=== PATIENT | female | born 1985 | race Caucasian/White ===

== ENCOUNTER 2018-10-08 10:18 | Emergency (ER) | payer OTHER ==
[~2018-10-08] VITALS: Ht 160 cm; Wt 71.2 kg
[~2018-10-08 10:18] MED LIST: ACET-8386 PO; BACL10TA4 PO; CEPH250C16 PO; DULO30EC PO; NAPR-54 PO; ORE25 PO
--- NOTE | 2018-10-08 10:21 | NUR ---
PT AMBULATES TO BED 11
--- NOTE | 2018-10-08 10:21 | NUR ---
Susu perez in [facility] - 10/08/18 at 1023 by [facility] PT AMBULATES TO BED 11
[2018-10-08 10:23] VITALS: BP 138/80
--- NOTE | 2018-10-08 10:23 | NUR ---
Susu perez in [facility] - 10/08/18 at 1033 by [facility] PT AMBULATES TO BED 4
--- NOTE | 2018-10-08 10:30 | NUR ---
PATIENT PRESENTS TO ED WITH c/o generalized pruritus , hives to extremities and back s/p taking a colon cleanser yesterday--- denies sob , no lip / tongue swelling noted---full clear speech .. DENIES N/V/D; SKIN IS PINK/WARM/DRY; AAOX4 WITH EVEN AND STEADY GAIT; LUNGS CLEAR BL; HR EVEN AND REGULAR; PT DENIES ANY FEVER, CP, SOB, OR COUGH AT THIS TIME; PATIENT STATES PAIN OF 0/10 AT THIS TIME; VSS; PATIENT POSITIONED FOR COMFORT; HOB ELEVATED; BEDRAILS UP X2; BED DOWN. ER MD MADE AWARE OF PT STATUS.
--- NOTE | 2018-10-08 10:40 | NUR ---
Patient being evaluated by physician at bedside.
[2018-10-08] MEDS ORDERED: methylPREDNISolone SS 125 MG/2 ML VIAL IM ONE (10:45)
[2018-10-08] MEDS ORDERED: diphenhydrAMINE 50 MG/ML VIAL IM ONE (10:45)
[2018-10-08 11:13] VITALS: BP 132/81
--- NOTE | 2018-10-08 11:13 | NUR ---
Patient discharged with v/s stable. Written and verbal after care instructions given and explained. Patient alert, oriented and verbalized understanding of instructions. Ambulatory with steady gait. All questions addressed prior to discharge. ID band removed. Patient advised to follow up with PMD. Rx of benadryl/prednisone given. Patient educated on indication of medication including possible reaction and side effects. Opportunity to ask questions provided and answered.
== END 2018-10-08 11:13 | disposition home or self-care (01) ==
LOC: MED 10:18
DX: L50.9 Urticaria, unspecified (principal); I10 Essential (primary) hypertension; E07.9 Disorder of thyroid, unspecified; Z88.0 Allergy status to penicillin; Z79.2 Long term (current) use of antibiotics; Z79.891 Long term (current) use of opiate analgesic; Z79.899 Other long term (current) drug therapy; Z79.1 Long term (current) use of non-steroidal anti-inflammatories (NSAID)
CPT/HCPCS: 96372; 99283; J1200; J2930

== ENCOUNTER 2019-04-18 19:16 | Emergency (ER) | payer OTHER ==
[~2019-04-18] VITALS: Ht 154.9 cm; Wt 70.8 kg
[2019-04-18 19:25] VITALS: BP 121/72
--- NOTE | 2019-04-18 19:25 | NUR ---
TO BED # 09 AMBULATORY
--- NOTE | 2019-04-18 19:42 | NUR ---
Dr. Stewart examining patient.
--- NOTE | 2019-04-18 19:42 | NUR ---
33 Y/O FEMALE PRESENTS TO ED WITH C/O BURNING WITH URINATION, LEFT SIDE, NON-RADIATING SUPRAPUBIC PAIN X3 DAYS. 6/10 PAIN CONSTANT AND WITH URINATION. AFEBRILE WITH VSS. PT DENIES VAGINAL BLEEDING OR DISCHARGE. NO N/V/D. ER MD AWARE. CONTINUE TO MONITOR.
[2019-04-18] MEDS ORDERED: PHENAZOPYRIDINE 100 MG TAB PO ONE (19:45)
--- NOTE | 2019-04-18 20:26 | NUR ---
Dr. 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
--- NOTE | 2019-04-18 20:28 | NUR ---
PELVIC PERFORMED BY DR CLARK. PT TOLLERATED PROCEDURE WELL. CONTINUE TO MONITOR.
--- NOTE | 2019-04-18 20:50 | NUR ---
PT STATES FEELING BETTER. 0/10 PAIN. VSS. ER MD AWARE. CONTINUE TO MONITOR.
[2019-04-18] MEDS ORDERED: AZITHROMYCIN 250 MG TAB PO ONE (20:55)
[2019-04-18] MEDS ORDERED: cefTRIAXone 250 MG in LIDOCAINE MPF 1% - 5 mL VIAL 0.9 ML IM ONE (20:55)
[2019-04-18 21:28] VITALS: BP 110/67
--- NOTE | 2019-04-18 21:28 | NUR ---
DISCHARGE INSTRUCTIONS GIVEN TO PT. RX OF MICONAZOLE, NAPROSYN, PHENAZOPRYRIDINE, AND KEFLEX GIVEN. SIDE EFFECTS EXPLAINED. INSTRUCTED TO F/U WITH PCP AND WHEN TO RETURN TO ER. PT VERBALIZED UNDERSTANDING OF DC INSTRUCTIONS. ALL QUESTIONS ANSWERED.
[2019-04-21 06:08] LABS: CHLAMYDIA TRACHOMATIS AMP DNA Negative (Negative)
== END 2019-04-18 21:28 | disposition home or self-care (01) ==
LOC: MED 19:16
DX: N76.0 Acute vaginitis (principal); N39.0 Urinary tract infection, site not specified; I10 Essential (primary) hypertension; E07.9 Disorder of thyroid, unspecified; Z85.9 Personal history of malignant neoplasm, unspecified; Z90.89 Acquired absence of other organs; Z79.899 Other long term (current) drug therapy; Z88.0 Allergy status to penicillin
CPT/HCPCS: 36415; 81002; 81025; 87210; 87491; 96372; 99283; J0696; J2001

== ENCOUNTER 2019-05-22 07:08 | Emergency (ER) | payer OTHER ==
[~2019-05-22] VITALS: Ht 154.9 cm; Wt 69.9 kg
[2019-05-22 07:24] VITALS: BP 128/68
--- NOTE | 2019-05-22 07:34 | NUR ---
PT C/O NAUSEA, VOMITING, HAND TREMOUS, PALPITATION, DIZZINESS SINCE 3 AM THIS MORNING. DENIES DIARRHEA OR ABDOMINAL PAIN. PATIENT STATES PAIN OF 0/10 AT THIS TIME; VSS; PATIENT POSITIONED FOR COMFORT; HOB ELEVATED; BEDRAILS UP X1; BED DOWN. ER MD MADE AWARE OF PT STATUS.
[2019-05-22] MEDS ORDERED: FAMOTIDINE 20 MG/2 ML VIAL IVP ONE (07:45)
[2019-05-22] MEDS ORDERED: NACL 0.9% 1,000 ML IV ONE (07:45)
[2019-05-22] MEDS ORDERED: ONDANSETRON 4 MG/2 ML VIAL IVP ONE (07:45)
[2019-05-22 08:19] LABS: BASOPHILS % (AUTO) 0.1 % (0.0-2.0); EOSINOPHILS % (AUTO) 0.3 % (0.0-4.0); HEMATOCRIT 35.5 % (36-48); LYMPHOCYTES # (AUTO) 0.9 K/uL (2.5-16.5); LYMPHOCYTES % (AUTO) 12.1 % (20.5-51.1); MEAN CORPUSCULAR HEMOGLOBIN 31 pg (27-31); MEAN CORPUSCULAR HGB CONC 34 g/dL (33-37); MEAN CORPUSCULAR VOLUME 91.6 fL (80-94); MONOCYTES # (AUTO) 0.3 K/uL (0.8-1.0); MONOCYTES % (AUTO) 3.4 % (1.7-9.3); NEUTROPHILS # (AUTO) 6.5 K/uL (1.8-7.7); NEUTROPHILS % (AUTO) 84.1 % (42.2-75.2); PLATELET COUNT (AUTO) 242 K/uL (140-450); RED BLOOD CELL COUNT(AUTO) 3.87 MIL/uL (4.20-5.40); RED CELL DISTRIBUTION WIDTH 13.1 % (11.6-13.7); WHITE BLOOD COUNT (AUTO) 7.8 K/uL (4.8-10.8)
[2019-05-22 08:29] LABS: POTASSIUM 4.2 mmol/L (3.5-5.1)
[2019-05-22 08:30] LABS: ANION GAP 9.8 (8-16); CARBON DIOXIDE 27.4 mmol/L (21-32); CREATININE 0.7 mg/dL (0.6-1.3)
[2019-05-22 08:42] LABS: ALBUMIN 3.3 g/dL (3.4-5.0); TOTAL BILIRUBIN 0.3 mg/dL (0.0-1.0)
[2019-05-22 09:25] VITALS: BP 109/59
== END 2019-05-22 09:35 | disposition home or self-care (01) ==
LOC: MED 07:08
DX: R11.10 Vomiting, unspecified (principal); R42 Dizziness and giddiness; R00.2 Palpitations; I10 Essential (primary) hypertension; Z88.0 Allergy status to penicillin; Z79.899 Other long term (current) drug therapy; Z85.850 Personal history of malignant neoplasm of thyroid
CPT/HCPCS: 36415; 80053; 81025; 83690; 85025; 96361; 96374; 96375; 99283; J2405; J3490; J7030

== ENCOUNTER 2019-11-03 11:03 | Emergency (ER) | payer OTHER ==
[~2019-11-03] VITALS: Ht 154.9 cm; Wt 70.8 kg
[2019-11-03 11:09] VITALS: BP 128/72
--- NOTE | 2019-11-03 11:15 | NUR ---
PT C/O HEAVY SUPRAPUBIC PAIN X 1 DAY. PAIN RADIATES TO BACK. DENIES VAGINAL BLEEDING OR ABNORMAL DISCHARGE. PT IUP 10 WKS. PATIENT STATES PAIN OF 10/10 AT THIS TIME; VSS; PATIENT POSITIONED FOR COMFORT; HOB ELEVATED; BEDRAILS UP X1; BED DOWN. ER MD MADE AWARE OF PT STATUS.
--- NOTE | 2019-11-03 11:19 | NUR ---
Patient ambulated to bed 2. RN evaluating patient at bedside.
--- NOTE | 2019-11-03 12:10 | NUR ---
U/S IS AT BEDSIDE.
[2019-11-03 13:58] VITALS: BP 118/68
[2019-11-03 13:58] LABS: APPEARANCE,URINE CLEAR (CLEAR); BILIRUBIN,URINE NEGATIVE (NEGATIVE); BLOOD, URINE NEGATIVE (NEGATIVE); COLOR,URINE DARK YELLOW (YELLOW); LEUKOCYTE ESTERASE ,URINE TRACE (NEGATIVE); NITRITE, URINE NEGATIVE (NEGATIVE); PH,URINE 8.5 (5.0-9.0); UGLUCOSE NEGATIVE (NEGATIVE)
--- NOTE | 2019-11-03 13:58 | NUR ---
Patient discharged with v/s stable. Written and verbal after care instructions given and explained. Patient alert, oriented and verbalized understanding of instructions. Ambulatory with steady gait. All questions addressed prior to discharge. ID band removed. Patient advised to follow up with PMD. Rx of Macrobid Capsule given. Patient educated on indication of medication including possible reaction and side effects. Opportunity to ask questions provided and answered.
[2019-11-03 14:11] LABS: BASOPHILS % (AUTO) 0.1 % (0.0-2.0); EOSINOPHILS % (AUTO) 0.5 % (0.0-4.0); HEMATOCRIT 37.5 % (36-48); HEMOGLOBIN 12.6 g/dL (12.0-16.0); LYMPHOCYTES # (AUTO) 1.4 K/uL (2.5-16.5); LYMPHOCYTES % (AUTO) 15.2 % (20.5-51.1); MEAN CORPUSCULAR HEMOGLOBIN 31 pg (27-31); MEAN CORPUSCULAR HGB CONC 34 g/dL (33-37); MONOCYTES # (AUTO) 0.5 K/uL (0.8-1.0); MONOCYTES % (AUTO) 5.4 % (1.7-9.3); NEUTROPHILS # (AUTO) 7.3 K/uL (1.8-7.7); NEUTROPHILS % (AUTO) 78.8 % (42.2-75.2); PLATELET COUNT (AUTO) 248 K/uL (140-450); RED BLOOD CELL COUNT(AUTO) 4.08 MIL/uL (4.20-5.40); RED CELL DISTRIBUTION WIDTH 13.9 % (11.6-13.7); WHITE BLOOD COUNT (AUTO) 9.2 K/uL (4.8-10.8)
[2019-11-03 15:00] LABS: RBC,URINE 0 /HPF (0-5)
[2019-11-03 15:22] LABS: ALBUMIN 3.4 g/dL (3.4-5.0); ANION GAP 11.4 (8-16); CARBON DIOXIDE 25.4 mmol/L (21-32); CREATININE 0.5 mg/dL (0.6-1.3); POTASSIUM 3.8 mmol/L (3.5-5.1); TOTAL BILIRUBIN 0.2 mg/dL (0.0-1.0)
== END 2019-11-03 13:58 | disposition home or self-care (01) ==
LOC: MED 11:03
DX: O23.41 Unspecified infection of urinary tract in pregnancy, first trimester (principal); I10 Essential (primary) hypertension; Z3A.10 10 weeks gestation of pregnancy; Z88.0 Allergy status to penicillin; Z85.850 Personal history of malignant neoplasm of thyroid
CPT/HCPCS: 36415; 76801; 80053; 81001; 84702; 85025; 86900; 86901; 87086; 99284; Q0092

== ENCOUNTER 2021-02-02 17:47 | Emergency (ER) | payer OTHER ==
[~2021-02-02] VITALS: Ht 154.9 cm; Wt 68.0 kg
[~2021-02-02 17:47] MED LIST changes: +HYDR-4004 PO; -ORE25 PO
[2021-02-02 18:03] VITALS: BP 102/79
--- NOTE | 2021-02-02 18:06 | NUR ---
35 Y/O FEMALE C/O NUMBNESS TO LEFT SIDE OF FACE X1DAY, "BALANCE IS OFF", +N/V, DIZZINESS, AND HEADACHE X5DAYS. PT DENIES FEVER. 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 PMH: HYPOTHYROIDISM RX: LEVOTHYROXINE ALLERGIES: PCN
[2021-02-02] MEDS ORDERED: KETOROLAC 30 MG/ML VIAL IM ONE (18:55)
[2021-02-02] MEDS ORDERED: diphenhydrAMINE 50 MG CAP PO ONE (19:00)
[2021-02-02] MEDS ORDERED: PROCHLORPERAZINE 10 MG/2 ML VIAL IM ONE (19:00)
--- NOTE | 2021-02-02 19:09 | NUR ---
RECEIVED REPORT FROM RAISSA DAHL FOR TRANSFER OF CARE.
--- NOTE | 2021-02-02 19:20 | NUR ---
PATIENT TAKEN TO CT.
--- NOTE | 2021-02-02 19:23 | NUR ---
Gave report to RAISSA Ruelas and RAISSA Vo. Transfer of care at this time.
[2021-02-02] MEDS ORDERED: ACET-10509 PO (20:03)
[2021-02-02 20:21] VITALS: BP 110/78
== END 2021-02-02 20:21 | disposition home or self-care (01) ==
LOC: MED 17:47
DX: R51.9 Headache, unspecified (principal); M54.2 Cervicalgia; M25.511 Pain in right shoulder; E03.9 Hypothyroidism, unspecified; I10 Essential (primary) hypertension; Z79.899 Other long term (current) drug therapy; Z85.850 Personal history of malignant neoplasm of thyroid
CPT/HCPCS: 70450; 81025; 96372; 99284; J0780; J1885; Q0163

== ENCOUNTER 2023-01-13 22:12 | Emergency (ER) | payer OTHER ==
[~2023-01-13] VITALS: Ht 154.9 cm; Wt 65.3 kg
[~2023-01-13 22:12] MED LIST changes: +ACET-10509 PO; -ACET-8386 PO; +ACET-8905 PO
[2023-01-13 22:15] VITALS: BP 121/75
[2023-01-13 23:11] LABS: APPEARANCE,URINE CLEAR (CLEAR); BILIRUBIN,URINE NEGATIVE (NEGATIVE); BLOOD, URINE NEGATIVE (NEGATIVE); COLOR,URINE YELLOW (YELLOW); LEUKOCYTE ESTERASE ,URINE NEGATIVE (NEGATIVE); NITRITE, URINE NEGATIVE (NEGATIVE); UGLUCOSE NEGATIVE (NEGATIVE)
--- NOTE | 2023-01-14 00:12 | NUR ---
37YR OLD FEMALE BIB SELF C/O PELVIC /ABD PAIN XTODAY. PT DENIES VAG BLEEDING FEVER N/V/D. 05/12 SHARP /ACHE PAIN. PT STATES PAIN STARTED TODAY. THIS PAST JULY. PT IS [place] [employer] SPEAKING ONLY PCN
[2023-01-14] MEDS ORDERED: HYDROcodone/APAP 5/325 MG 1 TAB TAB PO ONE (00:40)
[2023-01-14] MEDS ORDERED: KETOROLAC 15 MG/ML VIAL IM ONE (00:40)
--- NOTE | 2023-01-14 01:11 | NUR ---
ULTRASOUND AT BEDSIDE
--- NOTE | 2023-01-14 01:43 | NUR ---
PENDING ULTRASOUND RESULTS
--- NOTE | 2023-01-14 02:02 | NUR ---
PAIN LEVEL 2/10. PENDING ULTRASOUND RESULTS PENDING DISPO
[2023-01-14] MEDS ORDERED: ACET-10509 PO (02:07)
[2023-01-14] MEDS ORDERED: NAPR-54 PO (02:07)
[2023-01-14 02:19] VITALS: BP 125/81
--- NOTE | 2023-01-14 02:19 | NUR ---
Patient discharged with v/s stable. Written and verbal after care instructions given and explained. Patient alert, oriented and verbalized understanding of instructions. Ambulatory with steady gait. All questions addressed prior to discharge. ID band removed. Patient advised to follow up with PMD. Rx of ACETAMINOPHEN NAPROXEN given. Patient educated on indication of medication including possible reaction and side effects. Opportunity to ask questions provided and answered.
== END 2023-01-14 02:19 | disposition home or self-care (01) ==
LOC: MED 22:12
DX: R10.2 Pelvic and perineal pain (principal); R30.0 Dysuria; I10 Essential (primary) hypertension; E03.9 Hypothyroidism, unspecified; Z85.850 Personal history of malignant neoplasm of thyroid; Z98.890 Other specified postprocedural states; Z79.899 Other long term (current) drug therapy; Z79.1 Long term (current) use of non-steroidal anti-inflammatories (NSAID); Z79.891 Long term (current) use of opiate analgesic; Z79.2 Long term (current) use of antibiotics; Z88.0 Allergy status to penicillin
CPT/HCPCS: 76830; 81003; 81025; 87491; 96372; 99285; J1885; Q0092